=== PATIENT | female | born 1985 | race Caucasian/White ===

== ENCOUNTER 2024-04-09 09:42 | Emergency (ER) | payer SELFPAY ==
[2024-04-09 09:52] VITALS: BP 133/84
[2024-04-09 10:33] VITALS: BMI 28.5
[2024-04-09] MEDS: TORADOL 15 MG IV (11:08)
[2024-04-09] MEDS: NSS 500 IV (11:08)
[2024-04-09 11:21] LABS: % Basophils 0.3 % (0-2); % Eosinophils 3.7 % (0-6); % Immature Granulocytes 0.4 % (0-0.5); % Monocytes 7.4 % (1.7-9.3); % Neutrophils 77.2 % (42.2-75.2); Absolute Eosinophils 0.4 10^3/uL (0-0.7); Absolute Lymphocytes 1.2 10^3/uL (1.2-3.4); Absolute Monocytes 0.8 10^3/uL (0.1-0.6); Absolute Neutrophils 8.6 10^3/uL (1.4-6.5); Hematocrit 38.7 % (37.0-47.0); Hemoglobin 13.8 g/dL (12.0-16.0); Mean Corp Hgb Conc. 35.7 g/dL (33.0-37.0); Mean Corpuscular Hgb 31.2 pg (27.0-31.0); Mean Corpuscular Volume 87.4 fL (81.0-99.0); Mean Platelet Volume 9.1 fL (7.4-10.4); Nucleated Red Blood Cells % 0 %; Platelet Count 219 10^3/uL (130-400); Red Blood Cell Count 4.43 10^6/uL (4.20-5.40); Red Cell Dist. Width 12.5 % (11.5-14.5); White Blood Cell Count 11.1 10^3/uL (4.8-10.8)
--- NOTE | 2024-04-09 11:21 | ED.GENMED ---
History of Present Illness
General
Chief Complaint: Abdominal Pain
Source: patient
Exam Limitations: none
Time Seen by Provider: 04/09/24 10:24
Nursing documentation reviewed up to this point in time: agreed with
History of Present Illness
History of Present Illness:
Patient presents to ED secondary to sudden onset of lower abdominal pain associated with multiple vomiting episodes, as she was driving to work this morning. However, preceding the vomiting episodes, patient reports 6 episodes of nonbloody diarrhea
without any abdominal discomfort. Abdominal pain described as sharp, nonradiating, without any alleviating or exacerbating factors. Denies trauma. Denies previous history of similar symptoms. Patient's last menstrual cycle was 1 week ago, but
patient feels as though she may be ovulating currently.
Review of Systems
Review of Systems
Allergies reviewed?: Yes
All Other Systems: ROS reviewed and negative except as documented in HPI and ROS
Constitutional: Reports no symptoms
EENT: Reports no symptoms
Respiratory: Reports no symptoms
Cardiac: Reports no symptoms
ABD/GI: Reports abdominal pain, nausea, vomiting and diarrhea
: Reports no symptoms
Musculoskeletal: Reports no symptoms
Skin: Reports no symptoms
Neurological: Reports no symptoms
Phy Exam
Physical Exam
Physical Exam:
Physical Exam
General: mild distress, not acutely ill. afebrile
Head: nc/at. eomi
Neck: supple. no meningeal signs.
Heart: s1/s2 regular rate and rhythm, no murmur. equal radial pulses.
Lungs: no acute respiratory distress. clear bilaterally
Abdomen: normal bowel sounds. mild RLQ/suprapubic tenderness to palpation. no distention
Neuro: alert and oriented. no focal neurological deficits
Skin: no rash
Psychiatric: well kept. interactive and cooperative
Extremities: no edema. no calf tenderness.
Course
Orders/Labs/Results
Orders:
Orders
04/09/24 10:55
Ketorolac [Toradol] 15 mg IV NOW STA
Test Result ONCE
04/09/24 10:56
0.9% Sodium Chloride 500 ml [Nss] 500 ml IV BOLUS
US Pelvis Only (non-obstetric) Urgent
Reason For Exam: RLQ pain
04/09/24 11:06
Complete Blood Count/With Diff Urgent
Comprehensive Metabolic Panel Urgent
HCG, Serum Qualitative Screen Urgent
Magnesium Urgent
TSH Urgent
04/09/24 12:49
Urinalysis Reflex To Culture Urgent
Date Specimen was Collected: 04/09/24
Time Specimen was Collected: 12:28
04/09/24 13:08
CT Abd/pelvis W Iv Cont Urgent
Comment:
Reason For Exam: RLQ pain
Abnormal Lab Results
04/09/24
11:06
WBC 11.1 H 10^3/uL
(4.8-10.8)
MCH 31.2 H pg
(27.0-31.0)
Absolute Neuts (auto) 8.6 H 10^3/uL
(1.4-6.5)
Absolute Monos (auto) 0.8 H 10^3/uL
(0.1-0.6)
Neutrophils % 77.2 H %
(42.2-75.2)
Lymphocytes % 11.0 L %
(20.5-51.1)
Glucose 101 H mg/dl
(70-99)
04/09/24 11:06
04/09/24 11:06
Vital Signs
Initial and Last Documented VS:
Initial Vital Signs
Temp Pulse Resp BP Pulse Ox
98.9 F 73 16 133/84 98
04/09/24 09:52 04/09/24 09:52 04/09/24 09:52 04/09/24 09:52 04/09/24 09:52
Last Documented Vital Signs
Temp Pulse Resp BP Pulse Ox
98.9 F 83 16 117/80 98
04/09/24 09:52 04/09/24 16:20 04/09/24 09:52 04/09/24 16:20 04/09/24 09:52
MDM/Problems Addressed
MDM/Problems Addressed:
Mild leukocytosis noted on blood work. Pelvic ultrasound ordered with his clinical concern for potential ovarian torsion versus ruptured ovarian cyst.
Pelvic ultrasound without any acute findings. Repeat abdominal exam reveals persistent right lower quadrant tenderness with palpation. As such, decision made to order CT abdomen/pelvis at this time, to evaluate for potential appendicitis.
*Critical Care Note
Total Time (30-74mins, 75-104mins- exclusive of procedures): Not Applicable
ED Attending Note
-
Portions of this chart may have been created with voice recognition software.� Occasional wrong word or��sound alike� substitutions may have occurred due to the inherent limitations of voice recognition software.
Discharge Plan
Departure
Patient Disposition: Home (Routine Discharge)
Date of Disposition: 04/09/24
Time of Disposition: 15:57
Patient with high blood pressure during this ER visit?: No
Discharge Problem:
Abdominal pain
Instructions: Abdominal Pain
Referrals:
NONE,* [Family Provider] -
Interventions
Interventions:
*Risk Screen - Suicide Last Done: 04/09/24 09:52
*General Assessment Last Done: 04/09/24 09:52
*Neglect/Abuse Screening Last Done: 04/09/24 09:52
ED- Fall Risk Assessment Last Done: 04/09/24 10:31
*Nursing Disposition Last Done: 04/09/24 16:20
TF-[id number] Assessment Last Done: 04/09/24 10:31
Discharge Date and Time
Discharge Date/Time: 04/09/24 16:21
Print Language: PASHTO
[2024-04-09 11:34] LABS: HCG, Serum Qualitative Screen Negative
[2024-04-09 11:36] LABS: ALT (SGPT) 27 U/L (0-35); AST (SGOT) 27 U/L (14-36); Albumin 4.6 g/dl (3.5-5.0); Alkaline Phosphatase 53 U/L (38-126); Blood Urea Nitrogen 12 mg/dl (7-17); Calcium 9.8 mg/dl (8.4-10.2); Carbon Dioxide 25 mmol/L (22-30); Chloride 104 mmol/L (98-107); Estimated Creatinine Clearance 119 ml/min; Glucose 101 mg/dl (70-99); Magnesium 1.8 mg/dl (1.6-2.3); Potassium 4.4 mmol/L (3.5-5.1); Sodium 137 mmol/L (135-145); Total Protein 7.6 g/dl (6.3-8.2); eGFR > 60.00
[2024-04-09 12:04] LABS: TSH 1.64 uIU/ml (0.47-4.68)
[2024-04-09 13:48] LABS: Urine Albumin Negative (Neg - Trace); Urine Bilirubin Negative (Negative); Urine Character Clear (Clear); Urine Color Yellow; Urine Glucose Negative (Negative); Urine Ketone Negative (Negative); Urine Leukocyte Negative (Negative); Urine Nitrite Negative (Negative); Urine Occult Blood Negative (Negative); Urine Urobilinogen Negative (Neg - 1+)
[2024-04-09 15:37] VITALS: BP 109/78
[2024-04-09 16:20] VITALS: BP 117/80
== END 2024-04-09 16:21 | disposition home or self-care (01) ==
LOC: EMR 09:42
PROVIDERS: EMERGENCY PHYSICIAN Emergency Medicine
DX: R10.31 Right lower quadrant pain (principal); R11.2 Nausea with vomiting, unspecified; R19.7 Diarrhea, unspecified; M54.9 Dorsalgia, unspecified
CPT/HCPCS: 99285; 96361; 96374; 74177; 76856; 80053; 81003; 83735; 84443; 84703; 85025; Q9967